=== PATIENT | male | born 1980 | race Two or more races ===

== ENCOUNTER 2024-12-21 12:08 | Emergency (ER) | payer BC, OTHER ==
[~2024-12-21] VITALS: Ht 167.6 cm; Wt 153.1 kg
[2024-12-21 12:10] VITALS: BP 149/77; PULSE 74; RESP 15; TEMP 98.5; O2SAT 97
--- NOTE | 2024-12-21 12:28 | ED.PDOC ---
General HPI Comments 43-year-old male who presents to the ED with a chief complaint of hematuria onset today (12/21/24). Patient woke up this morning, notice blood in urine, went to work and when he went to the restroom he noticed blood stains on his underwear. He is currently experiencing discomfort with urination as well as penile pain. Denies any past medical history as well as fever, chills, nausea, vomiting, diarrhea, abdominal pain, chest pain, shortness of breath. No other symptoms or modifying factors present at this time. Chief Complaint: Urinary Time Seen by MD: 12:25 Reviewed notes: Medications, Allergies Allergies: Coded Allergies: NO KNOWN ALLERGIES (Unverified , 12/21/24) Home Meds Active Scripts Sulfamethoxazole W/Trimethopri (Bactrim Ds Tablet) 1 Tab Tb, 1 TAB PO BID for 7 Days, #14 TAB Prov:JACE RESENDEZ MD 12/21/24 Information Source: Patient Mode of Arrival: Ambulatory Severity: Moderate Timing: Hours Duration: Since onset Prehospital treatment: None Onset: Spontaneous Symptoms: Dysuria, Hematuria History of: None Penile discharge: None Modifying factors: None associated signs and symptoms: Dysuria, Hematuria Past Medical History PAST MEDICAL HISTORY: Denies Surgical History: Denies all surgeries Family History Family History: Reviewed,noncontributory to illness, No family hx of Cancer, No family hx of DM, No family hx of Heart ismael, No family hx of HTN, No family hx ofKidney ismeal, No family hx of Liver ismael, No family hx of Lung ismael, No family hx of Stroke Social History Smoker: Non-Smoker Alcohol: Denies ETOH Use Drugs: Denies Drug Use Lives In: Home Constitutional: denies: chills, diaphoresis, fatigue, fever, malaise, sweats, weakness, others EENTM: denies: blurred vision, double vision, ear bleeding, ear discharge, ear drainage, ear pain, ear ringing, eye pain, eye redness, hearing loss, mouth pain, mouth swelling, nasal discharge, nose bleeding, nose congestion, nose pain, photophobia, tearing, throat pain, throat swelling, voice changes, others Respiratory: denies: cough, hemoptysis, orthopnea, SOB at rest, shortness of breath, SOB with excertion, stridor, wheezing, others Cardiovascular: denies: chest pain, dizzy spells, diaphoresis, Dyspnea on exertion, edema, irregular heart beat, left arm pain, lightheadedness, palpitations, PND, syncope, others Gastrointestinal: denies: abdomen distended, abdominal pain, blood streaked bowels, constipated, diarrhea, dysphagia, difficulty swallowing, hematemesis, melena, nausea, poor appetite, poor fluid intake, rectal bleeding, rectal pain, vomiting, others Genitourinary: reports: dysuria, hematuria, pain (penile); denies: burning, flank pain, frequency, incontinence, penile discharge, penile sore, testicle pain, testicle swelling, urgency, others Neurological: denies: dizziness, fainting, headache, left sided numbness, left sided weakness, numbness, paresthesia, pre-existing deficit, right sided numbness, right sided weakness, seizure, speech problems, tingling, tremors, weakness, others Musculoskeletal: denies: back pain, gout, joint pain, joint swelling, muscle pain, muscle stiffness, neck pain, others Integumetry: denies: bruises, change in color, change in hair/nails, dryness, laceration, lesions, lumps, rash, wounds, others Allergic/Immunocompromised: denies: Difficulty Healing, Frequent Infections, Hives, Itching, others Hematologic/Lymphatic: denies: anemia, blood clots, easy bleeding, easy bruising, swollen glands, others Endocrine: denies: excessive hunger, excessive sweating, excessive thirst, excessive urination, flushing, intolerance to cold, intolerance to heat, unexplained weight gain, unexplained weight loss, others Psychiatric: denies: anxiety, bipolar disorder, depression, hopeless, panic disorder, schizophrenia, sleepless, suicidal, others All Other Systems: Reviewed and Negative Physical Exam General Appearance: Moderate Distress, Normal HEENT: Normal ENT Inspection, Pharynx Normal, TMs Normal Neck: Full Range of Motion, Non-Tender, Normal, Normal Inspection Respiratory: Chest Non-Tender, Lungs Clear, No Accessory Muscle Use, No Respiratory Distress, Normal Breath Sounds Cardiovascular: No Edema, No JVD, No Murmur, No Gallop, Normal Peripheral Pulses, Regular Rate/Rhythm Breast Exam: Deferred Gastrointestinal: No Organomegaly, Non Tender, No Pulsatile Mass, Normal Bowel Sounds, Soft Genitalia: Deferred Pelvic: Deferred Rectal: Deferred Extremities: No calf tenderness, Normal capillary refill, Normal inspection, Normal range of motion, Non-tender, No pedal edema Musculoskeletal : Apperance: Normal Neurologic: Alert, media sales consultant II-XII nml as Tested, No Motor Deficits, Normal Affect, Normal Mood, No Sensory Deficits Cerebellar Function: Normal Reflexes: Normal Skin: Dry, Normal Color, Warm Peripheral Pulses: 3+ Radial (R), 3+ Radial (L) Lymphatic: No Adenopathy Was a procedure done? Was a procedure done?: No Differential Diagnosis Kidney stone (Female): Musculoskeletal pain, Urinary obstruction, Urolithiasis X-Ray, Labs, Meds, VS Vital Signs Date Time Temp Pulse Resp B/P (MAP) Pulse Ox O2 Delivery O2 Flow Rate FiO2 12/21/24 12:10 98.5 74 15 149/77 97 98.5 Lab Test 12/21/24 14:45 Range/Units Urine Color Light-yellow Yellow Urine Clarity Clear Clear Urine pH 5.5 5.0-9.0 Urine Specific [place] 1.019 1.001-1.035 Urine Protein Negative Negative Urine Ketones Negative Negative Urine Blood Trace H Negative /uL Urine Nitrite Negative Negative Urine Bilirubin Negative Negative Urine Urobilinogen Normal Negative mg/dL Urine Leukocyte Esterase Trace Negative /uL Urine RBC 6 0 - 3 /hpf Urine Microscopic WBC 7 H 0-3 /HPF Urine Squamous Epithelial Cells Few <5 /hpf Urine Bacteria None seen None Seen /hpf Urine Glucose Normal Normal mg/dL [place] [id number] Ph: [phone] DIAGNOSTIC IMAGING Diagnostic Imaging Report : [id number] Signed PATIENT: SOLO PIERRE ACCT: [id number] UNIT: [id number] : 1980 LOC: ER ROOM / BED: / AGE / SEX: 43 / M ADM STATUS: REG ER SERVICE [id number] ORDERING PHYSICIAN: JACE RESENDEZ MD PROCEDURE(s): ABPL - CT AB PEL WO CON-NO ORAL OR IV REASON: stone ORDER NUMBER(s): [id number], ACCESSION NUMBER(s): [id number] EXAM: CT CT AB PEL WO CON-NO ORAL OR IV HISTORY: stone COMPARISON: None TECHNIQUE: Helical CT images of the abdomen and pelvis were performed without IV contrast. Sagittal and coronal reformatted images were obtained. This CT exam was performed using one or more of the following dose reduction techniques: Automated exposure control, adjustment of the mA and/or kv according to patient size, or the use of iterative reconstruction techniques. Radiation Dose: Abdomen/Pelvis: CTDIvol 27.37 mGy, DLP 1661.14 mGy*cm. FINDINGS: CT abdomen: There is a 2 mm right lower lobe noncalcified pulmonary nodule (image 4, series 2). The heart is not enlarged. The liver is diffusely fatty density and measures 19.5 cm longitudinal. The noncontrast spleen, gallbladder, pancreas, kidneys, and adrenal glands are unremarkable. No abdominal aortic aneurysm. CT pelvis: No abnormal bowel dilatation, free air, or free fluid. There are descending colon diverticula without evidence of acute diverticulitis. The appendix and urinary bladder are unremarkable. There is mild lumbar and moderate lower thoracic degenerative disc disease. IMPRESSION: 1. 2 mm right lower lobe noncalcified pulmonary nodule. Recommend outpatient f ollow-up according to Fleischner society guidelines. 2. Hepatomegaly and hepatic steatosis. 3. Descending colon diverticula without evidence of acute diverticulitis. 4. No evidence of bowel obstruction, urinary tract obstruction, acute appendicitis, or other acute process in the abdomen or pelvis. ATED BY: SHANTELL ALDRIDGE MD DICTATED DATE/TIME: 12/21/24 1319 SIGNED BY: SHANTELL ALDRIDGE MD SIGNED DATE/TIME: 12/21/24 131 CC: Patient alert. Came in because of hematuria. Vitals stable. Answering all questions. CT scan of the abdomen does not reveal any acute process. Does have pulmonary nodule on lung cuts. No leg swelling. No shortness a breath. No chest pain. Can be followed by his primary care physician. Was given prescription of Bactrim. Explained to the patient. Was told to follow up with his primary care physician. Was told to come back if there is any problem. Time of 1ST Reevaluation: 12:55 Reevaluation 1ST: Unchanged Patient Education/Counseling: Diagnosis, Treatment, Prognosis Family Education/Counseling: No Family Present SEPSIS Sepsis Screen Date sepsis recognized/suspect: Dec 21, 2024 Time Sepsis recognized/suspect: 1210 Recent Procedure: No On Antibiotic Therapy: No Respiratory Rate >20: No Heart Rate >90: No Temp<36 C (96.8 F) or >38.3 C: No SBP <90 or MAP <65 mmHG: No New Acute Mental Status Change: No Is the patient on CPAP, BIPAP,: No Physician Orders Ct Ab Pel Wo Con-No Oral Or Iv (12/21/24 12:42) Vital Signs Date Time Temp Pulse Resp B/P (MAP) Pulse Ox O2 Delivery O2 Flow Rate FiO2 12/21/24 12:10 98.5 74 15 149/77 97 98.5 Departure 1 Departure Time of Disposition: 16:41 Impression: Primary Impression: UTI (urinary tract infection) Qualified Codes: N30.01 - Acute cystitis with hematuria Additional Impression: Pulmonary nodule Disposition: HOME / SELF CARE / HOMELESS Condition: Good e-Prescriptions Sulfamethoxazole W/Trimethopri (Bactrim Ds Tablet) 1 Tab Tb 1 TAB PO BID for 7 Days, #14 TAB Prov: JACE RESENDEZ MD 12/21/24 Discharged With: Self Critical Care Note Critical Care Time?: No Stability Stability form required: No Heart Score Heart Score: Heart Score Response (Comments) Value History N/A 0 EKG N/A 0 Age N/A 0 Risk Factors N/A 0 Troponin N/A 0 Total 0 I personally scribed for JACE RESENDEZ MD ([email or web address]) on 12/21/24 at 12:28. Electronically submitted by Yolanda Ga ([email or web address]). I personally scribed for JACE RESENDEZ MD) on 12/21/24 at 15:00. Electronically submitted by Yolanda Ga ([email or web address]). JACE RESENDEZ MD Dec 21, 2024 12:28
--- NOTE | 2024-12-21 13:21 | DVH ---
EXAM: CT CT AB PEL WO CON-NO ORAL OR IV HISTORY: stone COMPARISON: None TECHNIQUE: Helical CT images of the abdomen and pelvis were performed without IV contrast. Sagittal a nd coronal reformatted images were obtained. This CT exam was performed using one or more of the foll owing dose reduction techniques: Automated exposure control, adjustment of the mA and/or kv according to patient size, or the use of iterative reconstruction techniques. Radiation Dose: Abdomen/Pelvis: CTDIvol 27.37 mGy, DLP 1661.14 mGy*cm. FINDINGS: CT abdomen: There is a 2 mm right lower lobe noncalcified pulmonary nodule (image 4, series 2). The h eart is not enlarged. The liver is diffusely fatty density and measures 19.5 cm longitudinal. The non contrast spleen, gallbladder, pancreas, kidneys, and adrenal glands are unremarkable. No abdominal ao rtic aneurysm. CT pelvis: No abnormal bowel dilatation, free air, or free fluid. There are descending colon divertic jill without evidence of acute diverticulitis. The appendix and urinary bladder are unremarkable. Ther e is mild lumbar and moderate lower thoracic degenerative disc disease. IMPRESSION: 1. 2 mm right lower lobe noncalcified pulmonary nodule. Recommend outpatient follow-up according to Fleischner society guidelines. 2. Hepatomegaly and hepatic steatosis. 3. Descending colon diverticula without evidence of acute diverticulitis. 4. No evidence of bowel obstruction, urinary tract obstruction, acute appendicitis, or other acute pr ocess in the abdomen or pelvis.
[2024-12-21 15:17] LABS: Urine Protein, UAD Negative (Negative)
[2024-12-21] MEDS ORDERED: BACDST PO (16:42)
== END 2024-12-21 17:00 | disposition home or self-care (01) ==
LOC: ER 12:08
DX: N30.01 Acute cystitis with hematuria (principal); N48.89 Other specified disorders of penis; Z57.8 Occupational exposure to other risk factors
CPT/HCPCS: 74176; 81001